=== PATIENT | male | born 2000 | race African-American/Black ===

== ENCOUNTER 2018-04-18 08:29 | Emergency (ER) | payer SELFPAY ==
[2018-04-18] MEDS: FAMOTIDINE 20 MG TABLET. PO (09:06)
[2018-04-18] MEDS: ONDANSETRON ODT 4 MG TAB.RAPDIS. PO (09:06)
[2018-04-18] MEDS: LIDO:MAALOX 1:1 20 ML SINGLE DOSE. SWSW (09:07)
== END 2018-04-18 09:22 | disposition home or self-care (01) ==
LOC: ER 09:22
DX: K21.9 Gastro-esophageal reflux disease without esophagitis (principal); R10.13 Epigastric pain; F12.10 Cannabis abuse, uncomplicated
CPT/HCPCS: 99284; Q0162